=== PATIENT | female | born 1995 | race Caucasian/White ===

== ENCOUNTER 2023-05-15 13:09 | Outpatient (CLI) | payer BC, SELFPAY ==
--- NOTE | 2023-05-15 14:00 | NEURO_ITS ---
Impression: # Complains of left upper extremity discomfort up to the shoulder/neck. No history of trauma. # Normal exam without evidence of Carpal Tunnel Syndrome or ulnar neuropathy. # Needle/EMG exam not requested. # Clinical correlation recommended. Nerve Conduction Studies Anti Sensory Summary Table Stim Site NR Peak (ms) P-T Amp (?V) Site1 Site2 Delta-P (ms) Dist (cm) Dre (m/s) Left Median Anti Sensory (2-3nd Digit) Wrist 2.5 80.0 Wrist 2-3nd Digit 2.5 14.0 56 Wrist 2.4 79.5 Wrist 2-3nd Digit 2.5 14.0 56 Right Median Anti Sensory (2-3nd Digit) Wrist 2.5 93.2 Wrist 2-3nd Digit 2.5 14.0 56 Wrist 2.4 88.4 Wrist 2-3nd Digit 2.5 14.0 56 Left Radial Anti Sensory (Base 1st Digit) Wrist 1.8 37.3 Wrist Base 1st Digit 1.8 0.0 Right Radial Anti Sensory (Base 1st Digit) Wrist 1.9 22.3 Wrist Base 1st Digit 1.9 0.0 Left Ulnar Anti Sensory (5th Digit) Wrist 2.2 71.0 Wrist 5th Digit 2.2 14.0 64 Right Ulnar Anti Sensory (5th Digit) Wrist 2.1 67.9 Wrist 5th Digit 2.1 14.0 67 Motor Summary Table Stim Site NR Onset (ms) O-P Amp (mV) Site1 Site2 Delta-0 (ms) Dist (cm) Dre (m/s) Left Median Motor (Abd Poll Brev) Wrist 2.9 6.6 Elbow Wrist 4.9 30.0 61 Elbow 7.8 7.4 Right Median Motor (Abd Poll Brev) Wrist 3.0 5.3 Elbow Wrist 4.7 29.0 62 Elbow 7.7 5.3 Left Ulnar Motor (Abd Dig Minimi) Wrist 2.8 7.6 A Elbow Wrist 5.0 31.0 62 A Elbow 7.8 7.2 Right Ulnar Motor (Abd Dig Minimi) Wrist 2.4 7.6 A Elbow Wrist 5.1 30.0 59 A Elbow 7.5 7.2 F Wave Studies NR F-Lat (ms) L-R F-Lat (ms) Left Median (Mrkrs) (Abd Poll Brev) 26.59 0.76 Right Median (Mrkrs) (Abd Poll Brev) 27.35 0.76 Left Ulnar (Mrkrs) (Abd Dig Min) 26.54 0.31 Right Ulnar (Mrkrs) (Abd Dig Min) 26.85 0.31 MTDD
== END 2023-05-15 13:10 | disposition home or self-care (01) ==
PROVIDERS: Visit Provider Family Medicine
DX: M25.512 Pain in left shoulder (principal); M79.2 Neuralgia and neuritis, unspecified
CPT/HCPCS: 95911